=== PATIENT | female | born 1985 | race Caucasian/White ===

== ENCOUNTER 2023-08-13 18:17 | Inpatient (IN) ==
[2023-08-13] MEDS ORDERED: LIDOCAINE 1% LOCAL 20 ML VIAL INFIL PRN (18:51)
--- NOTE | 2023-08-13 18:58 | Labor Progress Brief Note ---
Date of Service August 13, 2023 Subjective Pt c/o LOF since last night, slow leak, she wasn't really sure it was broken until this evening when she was walking to her car and it got to be too much leaking to ignore. No VB, good FM, some ctx but nothing that is as strong as her prior labor experiences. GBS+, GDM, AMA, LGA. Assessment & Plan (1) Gestational diabetes mellitus (GDM) affecting , antepartum: Plan: Term c/b LGA, now PROM, GDM, GBS+, AMA in a multiparous patient. Agreeable to augmentation with Pit and treatment for GBS with PCN. Will do hourly FSBG and apply insulin gtt protocol if >130. Will eventually want epidural. Physical Exam Genitourinary: /-2/soft/post LOF Clear FHT Cat 1 Sat[place] rare ctx. Results & Data Vital Signs (Past 12 Hours) Vital Signs Pulse BP 08/13/23 18:27 89 127/80 Coding Level of Care Code None Diagnoses Gestational diabetes mellitus (GDM) affecting , antepartum O24.419
[2023-08-13] MEDS: LACTATED RINGER'S 1,000 ML IV PRN (19:15)
[2023-08-13] MEDS: PENICILLIN GK 6 MU in DEXTROSE 5% 250 ML IV STA (19:23)
[2023-08-13 19:47] LABS: Hemoglobin 10.8 g/dl (12.0-16.0); Mean Corpuscular Hemoglobin 25.9 pg (25.0-34.0); Mean Corpuscular Hgb Conc 31.8 g/dL (32.0-36.0); Mean Corpuscular Volume 81.5 fL (80.0-100.0); Mean Platelet Volume 10.2 fL (9.4-12.4); Platelet Count 278 K/uL (130-400); RDW Coefficient of Variation 13.4 % (11.5-14.5); RDW Standard Deviation 39.8 fL (36.4-46.3); Red Blood Count 4.17 M/uL (4.20-5.40); White Blood Count 7.65 K/ul (4.8-10.8)
[2023-08-13] MEDS: OXYTOCIN 30 UNITS/NSS 30 UNITS/500 ML BAG IV PRN (20:10)
[2023-08-13] MEDS ORDERED: NALOXONE HCL 1 MG in SODIUM CHLORIDE 0.9% 1,000 ML IV PRN (21:38)
[2023-08-13] MEDS ORDERED: LIDOCAINE 2% MPF LOCAL 5 ML VIAL EPI PRN (21:38)
[2023-08-13] MEDS ORDERED: BUPIVACAINE 0.25% PF 30 ML VIAL EPI PRN (21:38)
[2023-08-13] MEDS ORDERED: NALOXONE HCL 0.4 MG/1 ML VIAL/CARP IV PRN (21:38)
[2023-08-13] MEDS ORDERED: diphenhydrAMINE 50 MG/ML VIAL IV PRN (21:38)
[2023-08-13] MEDS ORDERED: SODIUM CHLORIDE 0.9% PF INJ 10 ML VIAL EPI PRN (21:38)
[2023-08-13] MEDS ORDERED: fentANYL 2 MCG/ML BUPIVacaine 0.125%-NSS 100ML BAG EPI PRN (21:38)
[2023-08-13] MEDS ORDERED: NALBUPHINE HCL 5 MG in SYRINGE 0 ML IV PRN (21:38)
[2023-08-13] MEDS ORDERED: fentaNYL citrate PF 100 MCG/2 ML VIAL EPI PRN (21:38)
[2023-08-13] MEDS ORDERED: ePHEDrine sulfate 50 MG/ML AMP IV PRN (21:38)
[2023-08-13] MEDS ORDERED: ROPIVACAINE 0.5% PF 5 MG/ML 20 ML VIAL EPI PRN (21:38)
--- NOTE | 2023-08-13 21:44 | Anesthesiology Consultation ---
Date of Service August 13, 2023 Assessment & Plan Chart Review Chart Review: Patient NOT seen in Pre Admission Testing and Acceptable Risk for Labor Epidural Consults Requested none ASA ASA2 Proposed Anesthesia Anesthesia Type: Labor Epidural Risk / Benefits Reviewed With: PT / POA / Parent / Guardian, Accepts Plan and Informed Consent Obtained History Height/Weight Height: 5 ft 7 in Weight: 86.636 kg Allergies Allergy/AdvReac Type Severity Reaction Status Date / Time No Known Allergies Allergy Verified 08/13/23 20:20 Medications Home Medications Medication Instructions Recorded Confirmed Last Taken acetone (urine) test (Ketone Urine #50 ea 06/23/23 08/13/23 Unknown Test strips) blood sugar diagnostic (OneTouch #150 ea 06/23/23 08/13/23 Unknown Verio test strips) blood-glucose meter (OneTouch #1 ea 06/23/23 08/13/23 Unknown Verio Reflect Meter) lancets 33 gauge (OneTouch Delica #150 ea 06/23/23 08/13/23 Unknown Plus Lancet) blood sugar diagnostic (Accu-Chek #150 ea 06/25/23 08/13/23 Unknown Guide test strips) blood-glucose meter (Accu-Chek #1 ea 06/25/23 08/13/23 Unknown Guide Glucose Meter) lancets (Accu-Chek Softclix #100 ea 06/25/23 08/13/23 Unknown Lancets) vit no.95-ferrous 1 tab PO DAILY 08/13/23 08/13/23 08/12/23 fumarate 28 mg-folic acid 800 mcg tablet () Active Medications Generic Name Dose Route Start Last Admin Trade Name Freq PRN Reason Stop Dose Admin Oxytocin 30 units in 500 mls @ 4 mls/hr 08/13/23 18:51 08/13/23 21:00 Pitocin 30 Units/Nss IV 08/15/23 18:50 0.24 units/hr .Q24H PRN 4 mls/hr Labor Induction/Augmentation Titration Protocol 0.24 UNITS/HR Lactated Ringer's 1,000 mls @ 125 mls/hr 08/13/23 18:51 08/13/23 21:00 Lr IV 08/15/23 18:50 999 mls/hr .Q8H PRN Infusion L&D Protocol Protocol NPO Date Last Intake of Fluids: 08/13/23 Time Last Intake of Fluids: 21:00 Date Last Intake of Solids: 08/13/23 Time Last Intake of Solids: 14:00 Past Medical History Medical History Gestational diabetes AMA (advanced maternal age) multigravida 35+ delivery 2007 at 36 weeks patient induced due to seziures think to be related to pre eclampsia. Patient hospitalized for 2 weeks. Hx of migraines History of chicken pox Exercise / Class Metabolic Activity 1 > 8 Run/Swim/Ski/Tennis Past Family History Family History Grandfather (Maternal) Congestive heart failure Mother Hypertension Father Hypertension Myocardial infarction Grandfather (Paternal) Diabetes Grandmother (Paternal) Diabetes Denies family history of Ovarian cancer Breast cancer Colorectal cancer Past Surgical History Surgical History S/P wisdom tooth extraction S/P myringotomy with insertion of tube S/P loop electrosurgical excision procedure x2 Past Anesthesia History No Hx of Anesthesia Complications and No Family Hx of Anesthesia Complications History of PONV No Hx of PONV and No Hx of Motion Sickness Social History Smoking Status: Never smoker Do You Dip or Chew Tobacco: No Hx Alcohol Use: No Hx Substance Use: No substance use type: does not use Review of Systems ROS Unobtainable: All systems reviewed & are unremarkable except as noted in HPI & below Physical Exam Vital Signs Last Vital Signs Temp 36.5 C 08/13/23 21:12 Pulse 76 08/13/23 21:33 Resp 18 08/13/23 21:12 BP 143/73 H 08/13/23 21:00 Pulse Ox 96 08/13/23 21:33 ENMT Mouth: no TMJ abnormality Thyromental Distance: > or= 3.5 Finger Breadths Mallampati Class: II Neck normal visual inspection and trachea midline; neck extension not limited Respiratory normal respiratory effort Auscultation: lungs clear to auscultation bilaterally Cardiovascular Rate/Rhythm: regular rate and regular rhythm Heart Sounds: no murmur Musculoskeletal Spine: normal cervical ROM Extremities: full ROM of extremities Neurologic moves all extremities Psychiatric Orientation: alert and oriented x 3 Testing Laboratory Results 08/13/23 19:08/13/23 08/13/23 08/13/23 21:01 20:05 19:08 POC Glucose 77 87 73
[2023-08-13] MEDS: LIDOCAINE 2%/EPINEPHRINE 1:200,000 20 ML PF ONE (21:59)
[2023-08-13] MEDS: BUPIVACAINE 0.25% PF 30 ML VIAL ONE (21:59)
[2023-08-13] MEDS: SODIUM CHLORIDE 0.9% PF INJ 10 ML VIAL ONE (21:59)
[2023-08-13] MEDS: fentANYL 2 MCG/ML BUPIVacaine 0.125%-NSS 100ML BAG ONE (22:00)
[2023-08-13] MEDS: ePHEDrine sulfate 50 MG/ML AMP ONE (22:03)
[2023-08-13] MEDS: fentaNYL citrate PF 100 MCG/2 ML VIAL ONE (22:03)
[2023-08-13] MEDS: BUPIVACAINE 0.25% PF 30 ML VIAL EPI STA (22:04)
[2023-08-13] MEDS: fentaNYL citrate PF 100 MCG/2 ML VIAL EPI STA (22:05)
[2023-08-13] MEDS: LIDOCAINE 2%/EPINEPHRINE 1:200,000 20 ML PF EPI STA (22:06)
[2023-08-13] MEDS: SODIUM CHLORIDE 0.9% PF INJ 10 ML VIAL EPI STA (22:06)
[2023-08-13] MEDS: PENICILLIN GK 3 MU in DEXTROSE 5% 100 ML IV PRN (23:19)
[2023-08-14] MEDS: miSOPROStoL 200 MCG TAB ONE (01:34)
--- NOTE | 2023-08-14 01:44 | Delivery Summary ---
Vaginal Delivery Summary Date of Service August 14, 2023 Vaginal Delivery Summary DIAGNOSES: 1. Herrera intrauterine at 38w3d gestation. 2. Spontaneous rupture of membranes, augmentation of labor. 3. Group B Streptococcus Pos. PROCEDURE: Spontaneous vaginal delivery without laceration. SURGEON: Apoorva Jean Baptiste MD. APPLICATION SOFTWARE DEVELOPER: None. ESTIMATED BLOOD LOSS: 350 mL. COMPLICATIONS: None. PLACENTA: Spontaneous and intact with a 3-vessel cord. DISPOSITION: Stable to labor and delivery. DESCRIPTION: The patient pushed well and brought the head to in OA position. The 's head delivered with a turtle sign, and preparations were made for addressing dystocia. On the next push the shoulders did not deliver with Nilda position, so suprapubic pressure was employed. No movement resulted, so an attempt was made to deliver the posterior arm. This was not successful, and with the next pushing effort, a Wood's Screw maneuver was employed. This resulted in significant downward movement of the baby. With the following push the infant's shoulders fully delivered. The remainder of the followed. There was no nuchal cord. The right shoulder was anterior upon first presentation, the left arm was the posterior at the time of attempted delivery of the posterior arm, and upon rotation the made nearly a 180 degree turn such that the delivery was ultimately accomplished with baby's left shoulder most anterior. The was placed on the maternal abdomen. The cord was doubly clamped by the MD and then cut by the FOB. The infant was quickly moved to the warmer for attention from the pediatric nursing team. The placenta delivered spontaneously and was noted to be intact and with a 3VC. The cervix, vagina and perineum were examined and were found to be without defect requiring repair. The fundus was firm and lochia minimal immediately after delivery. [facility] Vaginal Delivery Charge Vaginal Delivery Codes: 38573 global code for the antepartum, delivery, and post-
[2023-08-14] MEDS: IBUPROFEN 600 MG TAB PO ONE (02:02)
[2023-08-14] MEDS: OXYTOCIN 30 UNITS/NSS 30 UNITS/500 ML BAG IV PRN (02:03)
[2023-08-14] MEDS ORDERED: OXYTOCIN 30 UNITS/NSS 30 UNITS/500 ML BAG IV PRN (05:21)
[2023-08-14] MEDS ORDERED: bisacodyL 10 MG SUPP PR PRN (05:21)
[2023-08-14] MEDS ORDERED: ACETAMINOPHEN 325 MG TAB PO PRN (05:21)
[2023-08-14] MEDS ORDERED: HYDROCORTISONE ACETATE 25 MG SUPP PR PRN (05:21)
[2023-08-14] MEDS: IBUPROFEN 600 MG TAB PO PRN (05:44)
[2023-08-14] MEDS: PRENATAL VITAMIN 1 TAB PO SCH (08:17)
[2023-08-14] MEDS: BENZOCAINE 20% SPRY 85 APPLN/85 GM CAN EXT PRN (08:17)
[2023-08-14] MEDS: DOCUSATE SODIUM 100 MG CAP PO SCH (08:17)
--- NOTE | 2023-08-14 09:28 | Anesthesia Procedure Note ---
Date of Service August 14, 2023 Anesthesia Post Epidural Note Vital Signs Vital Signs: Temp Pulse Resp BP Pulse Ox O2 Del Method 36.9 C 66 18 123/84 96 Room Air 08/14/23 08:25 08/14/23 08:25 08/14/23 08:25 08/14/23 08:25 08/14/23 01:33 08/14/23 08:25 Pain Intensity Abdomen: Pain Intensity: 1 Notes Mental Status: alert / awake / arousable Nausea / Vomiting: adequately controlled Pain: adequately controlled Airway Patency, RR, SpO2: stable & adequate BP & HR: stable & adequate Hydration State: stable & adequate Neuraxial Anesthesia: was administered and sensory block is resolving Anesthetic Complications: no major complications apparent and Pt Satisfied with anesthetic care Epidural: Removed without complications and With tip intact
[2023-08-14] MEDS: oxyCODONE/ACETAMINOPHEN 5mg/325mg TAB PO PRN (10:24)
[2023-08-14] MEDS: DIPHTHER/TETAN/PERTUS Vaccine (Tdap, Adol/Adult) 0.5mL IM ONE (18:14)
[2023-08-14 22:57] VITALS: O2SAT 98
--- NOTE | 2023-08-15 05:50 | Obstetrical Progress Note ---
Date of Service August 15, 2023 Assessment & Plan (1) Encounter for care and examination after delivery: Plan 37 y/o PPD#1 Feels well today Vital signs reviewed Encourage breast feeding Rubella immune, BTG: O+ Continue post care Discharge home today, instructions reviewed Follow up in 6 weeks in office Admission and Anticipated Discharge Date Admission Date: August 13, 2023 Supervising Physician Co-Signing Physician Notes Resident Physician Supervision Note: I was present with Dr. Childers during the history and exam. I discussed the case with the resident and agree with the findings and plan as documented in the note. Any exceptions or clarifications are listed here: stable, routine care, eating, voiding, ambulating. abd soft ff 2 down nt, ext nt calves. doing well and wants to go home. f/u 6wks pp check. instructions reviewed. Documented By: Mallory Juarez MD, FACOG Subjective 37 yo post- day 1 s/p Ambulation: ambulating normally Voiding: no voiding problems Passing Gas:: Yes Diet Tolerance:: regular diet Lochia:: Small Feeding Type: breast feeding Current Pain Level: mild Resting comfortably this AM in NAD. Denies MERCADO, CP, SOB, N/V/D, LE pain/swelling. Review of Systems Review of Systems: as per hpi Physical Exam 2 Physical Exam: General: patient resting comfortably, NAD, non-toxic in appearance, AA&O x 4, answers questions appropriately. Skin: warm, dry, intact Heart: +S1/S2, regular, no m/r/g Lungs: equal air entry bilaterally, no rales/rhonchi/wheezes Abd: +BS, soft, NT/ND, uterine fundus firm at umbilicus Ext: warm, no clubbing/cyanosis or edema, Job's neg. Neuro: nonfocal, patient AA&O x 4, speech intact, no facial droop, moving all extremities on command. Results & Data Vital Signs (Past 12 Hours) Vital Signs Temp Pulse Resp BP Pulse Ox O2 Del Method 08/14/23 22:56 36.7 C 75 18 114/73 98 Room Air 08/14/23 19:55 Room Air 08/14/23 19:05 36.9 C 72 16 122/81 97 Room Air Resident Activity Tracking Resident Involvement: Resident Care Provided Care Provided: OB Delivery
[2023-08-15 06:23] LABS: Hematocrit (blood only) 29.3 % (37.0-47.0); Hemoglobin 9.2 g/dl (12.0-16.0); Mean Corpuscular Hemoglobin 25.6 pg (25.0-34.0); Mean Corpuscular Hgb Conc 31.4 g/dL (32.0-36.0); Mean Corpuscular Volume 81.6 fL (80.0-100.0); Mean Platelet Volume 10.4 fL (9.4-12.4); Platelet Count 204 K/uL (130-400); RDW Coefficient of Variation 13.2 % (11.5-14.5); RDW Standard Deviation 39.5 fL (36.4-46.3); Red Blood Count 3.59 M/uL (4.20-5.40); White Blood Count 8.48 K/ul (4.8-10.8)
[2023-08-15 09:28] VITALS: BP 113/71; PULSE 65; RESP 16; TEMP 97.5
[2023-08-15] MEDS ORDERED: bisacodyL 5 MG TABEC PO SCH (20:00)
== END 2023-08-15 11:20 | disposition home or self-care (01) | DRG 807 ==
LOC: OPB 18:17 → 4S1 18:18 → 4E2 08-14 04:29